=== PATIENT | male | born 1955 | race African-American/Black ===

== ENCOUNTER 2021-05-07 11:35 | Inpatient (IN) | payer MEDICARE, OTHER ==
[~2021-05-07] VITALS: Ht 182.9 cm; Wt 120.2 kg
[2021-05-07 13:58] LABS: Basophils # (auto) 0.1 10 ^3/uL (0-0.2); Eosinophils # (auto) 0.3 10 ^3/uL (0-0.8); Hematocrit 26.7 % (41.0-53.0); Lymphocytes % (auto) 35.5 % (10.0-50.0); Mean Corpuscular Hemoglobin 29.7 pg (28.0-32.0); Mean Corpuscular Hgb Conc. 33.8 g/dL (32.0-36.0); Mean Corpuscular Volume 87.8 fL (80.0-100.0); Monocytes # (auto) 1.4 10 ^3/uL (0-1.3); Monocytes % (auto) 16.8 % (0.0-12.0); Neutrophils # (auto) 3.6 10 ^3/uL (1.6-8.6); Neutrophils % (auto) 42.7 % (37.0-80.0); Nucleated Red Blood Cells % 0.1 %; Red Blood Cells 3.05 10^6/uL (4.5-5.90); Red Cell Distribution Width 15.8 % (11.8-14.3); White Blood Cell 8.5 10^3/uL (4.4-10.8)
[2021-05-07 14:21] LABS: INR 1.18 (0.9-1.15); Partial Thromboplastin Time 35.6 sec (23.0-31.2)
[2021-05-07 14:23] LABS: Alanine Aminotransferase 11 U/L (16-61); Albumin 2.5 g/dL (3.4-5.0); Anion Gap 7 (5-15); Aspartate Aminotransferase 13 U/L (15-37); BUN/Creatinine Ratio 3.6; Blood Urea Nitrogen 24 mg/dL (7-18); Calcium 9.2 mg/dL (8.5-10.1); Carbon Dioxide 34 mmol/L (21-32); Chloride 93 mmol/L (98-107); GFR African American 11 mL/min; GFR Non-African American 9 mL/min; Glucose 114 mg/dL (74-106); Magnesium 1.9 mg/dL (1.6-2.6); Potassium 3.2 mmol/L (3.5-5.1); Sodium 134 mmol/L (136-145)
[2021-05-07 14:28] LABS: Alkaline Phosphatase 80 U/L (45-117); Bilirubin, Total 0.4 mg/dL (0.2-1.0); Total Protein 8.6 g/dL (6.4-8.2)
[2021-05-07] MEDS ORDERED: POTASSIUM CHL 20MEQ/100ML 100 ML IV ONE (15:30)
[2021-05-07] MEDS ORDERED: DEXTROSE (50%) 50ML SYRG IV PRN (17:00)
[2021-05-07] MEDS ORDERED: HYDROcodone-ACET 5/325MG TAB PO PRN (17:00)
[2021-05-07] MEDS ORDERED: NITROGLYCERIN 0.4 MG SL TAB SL PRN (17:00)
[2021-05-07] MEDS: InsuLIN REG 1unit/0.01ml Soln (100units/ml) SC SCH ×2 (17:00→22:41)
[2021-05-07] MEDS ORDERED: VANCOMYCIN PER PHARMACY 0 MG IV SCH (17:00)
[2021-05-07] MEDS ORDERED: ACETAMINOPHEN 500 MG TAB PO PRN (17:00)
[2021-05-07] MEDS ORDERED: MORPHINE SULFATE INJECTION 2 MG/ML SYRG IV PRN ×2 (17:00)
[2021-05-07] MEDS: ACCU-CHEK COMFORT CURVE STRIP VI SCH ×2 (17:35→22:40)
[2021-05-07] MEDS ORDERED: VANCOMYCIN 1GM/250ML 250 ML IV ONE (18:00)
[2021-05-07 19:20] LABS: Folate (Folic Acid) > 24.00 ng/mL (5.38-24)
[2021-05-07 22:15] VITALS: BP 125/72
[2021-05-07] MEDS: metroNIDAZOLE 500MG/100ML 100 ML IV SCH (22:40)
[2021-05-07 23:35] VITALS: BP 125/72
[2021-05-08 05:00] VITALS: BP 116/67
[2021-05-08] MEDS: metroNIDAZOLE 500MG/100ML 100 ML IV SCH (05:50)
[2021-05-08] MEDS: ACCU-CHEK COMFORT CURVE STRIP VI SCH ×4 (06:38→21:48)
[2021-05-08] MEDS: InsuLIN REG 1unit/0.01ml Soln (100units/ml) SC SCH ×4 (06:39→21:48)
[2021-05-08] MEDS ORDERED: SODIUM CHL 0.9% 1000 ML BAG XX ONE (07:00)
[2021-05-08 07:29] LABS: Basophils # (auto) 0.1 10 ^3/uL (0-0.2); Eosinophils # (auto) 0.4 10 ^3/uL (0-0.8); Eosinophils % (auto) 5.7 % (0.0-7.0); Hematocrit 27.4 % (41.0-53.0); Hemoglobin 9.2 g/dL (13.5-17.5); Lymphocytes % (auto) 27.8 % (10.0-50.0); Mean Corpuscular Hemoglobin 29.5 pg (28.0-32.0); Mean Corpuscular Hgb Conc. 33.6 g/dL (32.0-36.0); Mean Corpuscular Volume 87.9 fL (80.0-100.0); Monocytes % (auto) 14.7 % (0.0-12.0); Neutrophils # (auto) 3.6 10 ^3/uL (1.6-8.6); Neutrophils % (auto) 50.8 % (37.0-80.0); Nucleated Red Blood Cells % 0.1 %; Red Blood Cells 3.12 10^6/uL (4.5-5.90); Red Cell Distribution Width 15.6 % (11.8-14.3); White Blood Cell 7.1 10^3/uL (4.4-10.8)
[2021-05-08 07:47] LABS: INR 1.13 (0.9-1.15); Partial Thromboplastin Time 32.3 sec (23.0-31.2)
[2021-05-08 07:52] LABS: Potassium 3.5 mmol/L (3.5-5.1)
[2021-05-08 07:56] LABS: BUN/Creatinine Ratio 3.7
[2021-05-08 08:30] VITALS: BP 106/60
[2021-05-08 09:00] VITALS: BP 106/60
[2021-05-08] MEDS ORDERED: levoFLOXacin 750MG 150 ML IV SCH (10:00)
[2021-05-08 12:30] VITALS: BP 142/76
[2021-05-08 17:00] VITALS: BP 130/67
[2021-05-08] MEDS ORDERED: VANCOMYCIN 1GM/250ML 250 ML IV ONE (18:00)
[2021-05-08] MEDS ORDERED: EPOETIN ALFA-EPBX 4,000 UNIT/ML VIAL SC ONE (21:00)
[2021-05-08 22:00] VITALS: BP 130/72
[2021-05-09 05:00] VITALS: BP 131/70
[2021-05-09 06:56] LABS: Basophils # (auto) 0.1 10 ^3/uL (0-0.2); Eosinophils # (auto) 0.4 10 ^3/uL (0-0.8); Eosinophils % (auto) 5.8 % (0.0-7.0); Hematocrit 28.3 % (41.0-53.0); Hemoglobin 9.5 g/dL (13.5-17.5); Lymphocytes # (auto) 2.4 10 ^3/uL (0.4-5.4); Mean Corpuscular Hemoglobin 29.7 pg (28.0-32.0); Mean Corpuscular Hgb Conc. 33.6 g/dL (32.0-36.0); Mean Corpuscular Volume 88.3 fL (80.0-100.0); Monocytes # (auto) 1.1 10 ^3/uL (0-1.3); Monocytes % (auto) 15.9 % (0.0-12.0); Neutrophils # (auto) 2.9 10 ^3/uL (1.6-8.6); Neutrophils % (auto) 42.3 % (37.0-80.0); Nucleated Red Blood Cells % 0.1 %; Red Cell Distribution Width 15.3 % (11.8-14.3); White Blood Cell 6.9 10^3/uL (4.4-10.8)
[2021-05-09] MEDS: InsuLIN REG 1unit/0.01ml Soln (100units/ml) SC SCH ×4 (06:56→22:04)
[2021-05-09] MEDS: ACCU-CHEK COMFORT CURVE STRIP VI SCH ×4 (06:56→22:02)
[2021-05-09 07:11] LABS: Albumin 2.3 g/dL (3.4-5.0); Calcium 8.9 mg/dL (8.5-10.1); Magnesium 1.9 mg/dL (1.6-2.6); Potassium 3.9 mmol/L (3.5-5.1)
[2021-05-09 07:16] LABS: BUN/Creatinine Ratio 3.5; Bilirubin, Total 0.5 mg/dL (0.2-1.0); Total Protein 8.1 g/dL (6.4-8.2)
[2021-05-09 09:00] VITALS: BP 102/58
[2021-05-09 13:00] VITALS: BP 130/68
[2021-05-09] MEDS ORDERED: CHOLECALCIFEROL (VITD3) 2,000 UNIT CAP/TAB PO ONE (14:15)
[2021-05-09] MEDS ORDERED: MAGNESIUM SULFATE 1GM/100ML 100 ML IV ONE (14:15)
[2021-05-09 17:00] VITALS: BP 100/66
[2021-05-09 22:00] VITALS: BP 137/78
[2021-05-09] MEDS: MUPIROCIN 2% OINT 15gm or 22gm EACHNOSTRI SCH (22:04)
[2021-05-10 05:00] VITALS: BP 129/70
[2021-05-10] MEDS: InsuLIN REG 1unit/0.01ml Soln (100units/ml) SC SCH ×3 (06:25→16:32)
[2021-05-10] MEDS: ACCU-CHEK COMFORT CURVE STRIP VI SCH ×3 (06:25→16:33)
[2021-05-10 06:49] LABS: Basophils # (auto) 0.1 10 ^3/uL (0-0.2); Basophils % (auto) 0.9 % (0.0-2.0); Eosinophils # (auto) 0.5 10 ^3/uL (0-0.8); Hematocrit 26.9 % (41.0-53.0); Hemoglobin 9.1 g/dL (13.5-17.5); Lymphocytes # (auto) 2.9 10 ^3/uL (0.4-5.4); Lymphocytes % (auto) 38.7 % (10.0-50.0); Mean Corpuscular Hemoglobin 29.9 pg (28.0-32.0); Mean Corpuscular Volume 87.9 fL (80.0-100.0); Monocytes # (auto) 1.1 10 ^3/uL (0-1.3); Monocytes % (auto) 14.1 % (0.0-12.0); Neutrophils % (auto) 39.3 % (37.0-80.0); Red Blood Cells 3.05 10^6/uL (4.5-5.90); Red Cell Distribution Width 14.9 % (11.8-14.3); White Blood Cell 7.6 10^3/uL (4.4-10.8)
[2021-05-10] MEDS ORDERED: SODIUM CHL 0.9% 1000 ML BAG XX ONE (07:00)
[2021-05-10 07:04] LABS: Magnesium 2.2 mg/dL (1.6-2.6); Potassium 3.5 mmol/L (3.5-5.1)
[2021-05-10 09:00] VITALS: BP 125/69
[2021-05-10] MEDS ORDERED: CHOLECALCIFEROL (VITD3) 2,000 UNIT CAP/TAB PO SCH (10:00)
[2021-05-10] MEDS: MUPIROCIN 2% OINT 15gm or 22gm EACHNOSTRI SCH (10:05)
[2021-05-10 13:00] VITALS: BP 136/85
[2021-05-10] MEDS ORDERED: GABA100C9 PO (13:22)
[2021-05-10] MEDS ORDERED: ATO40T PO (13:22)
[2021-05-10] MEDS ORDERED: MIDO10TA2 PO (13:22)
[2021-05-10] MEDS ORDERED: OMEP20TA PO (13:22)
[2021-05-10] MEDS ORDERED: APIX5TAB PO (13:22)
[2021-05-10] MEDS ORDERED: LEVO500T31 PO (14:19)
[2021-05-10] MEDS ORDERED: CHOL20007 PO (14:19)
[2021-05-10] MEDS ORDERED: MUPI2CRE17 EX (14:19)
[2021-05-10] MEDS ORDERED: SACC250C PO (14:27)
[2021-05-10] MEDS ORDERED: levoFLOXacin 750MG 150 ML IV ONE (14:30)
[2021-05-10 16:38] VITALS: BP 99/58
[2021-05-10] MEDS ORDERED: EPOETIN ALFA-EPBX 4,000 UNIT/ML VIAL SC ONE (21:00)
== END 2021-05-10 17:40 | disposition home health service (06) | DRG 637 ==
LOC: ER 11:35 → EDBD 11:35 → TELE 16:47 → TELE-EAST 22:15
PROVIDERS: ADMIT Nurse Practitioner Acute Care; ATTEND Internal Medicine
PROC: 5A1D70Z Performance of Urinary Filtration, Intermittent, Less than 6 Hours Per Day (ICD-10-PCS; principal; 2021-05-08)
PROC: 5A1D70Z Performance of Urinary Filtration, Intermittent, Less than 6 Hours Per Day (ICD-10-PCS; 2021-05-10)
DX: E11.621 Type 2 diabetes mellitus with foot ulcer (principal); G93.41 Metabolic encephalopathy; E87.1 Hypo-osmolality and hyponatremia; I12.0 Hypertensive chronic kidney disease with stage 5 chronic kidney disease or end stage renal disease; M86.8X7 Other osteomyelitis, ankle and foot; E11.69 Type 2 diabetes mellitus with other specified complication; N18.6 End stage renal disease; E87.6 Hypokalemia; L89.619 Pressure ulcer of right heel, unspecified stage; I95.9 Hypotension, unspecified; E66.9 Obesity, unspecified; Z20.822 Contact with and (suspected) exposure to COVID-19; B95.61 Methicillin susceptible Staphylococcus aureus infection as the cause of diseases classified elsewhere; D63.8 Anemia in other chronic diseases classified elsewhere; E11.22 Type 2 diabetes mellitus with diabetic chronic kidney disease; E55.9 Vitamin D deficiency, unspecified; E78.5 Hyperlipidemia, unspecified; I44.7 Left bundle-branch block, unspecified; Z99.2 Dependence on renal dialysis; Z86.73 Personal history of transient ischemic attack (TIA), and cerebral infarction without residual deficits; Z68.31 Body mass index [BMI] 31.0-31.9, adult; Z79.4 Long term (current) use of insulin; Z88.0 Allergy status to penicillin
CPT/HCPCS: 36415; 70450; 73700; 73721; 80048; 80053; 80061; 80202; 82306; 82746; 82962; 83036; 83605; 83735; 84132; 84425; 84443; 84484; 85025; 85049; 85610; 85730; 87040; 87077; 87081; 87186; 87205; 87426; 90935; 93005; 96365; 96366; 96367; 99291; G0378; J1642; J1815; J1956; J3480; J3490

== ENCOUNTER 2021-05-13 15:48 | Inpatient (IN) | payer OTHER, MEDICARE ==
[~2021-05-13] VITALS: Ht 188 cm; Wt 99.2 kg
[~2021-05-13 15:48] MED LIST: APIX5TAB PO; ATO40T PO; CHOL20007 PO; GABA100C9 PO; LEVO500T31 PO; MIDO10TA2 PO; MUPI2CRE17 EX; OMEP20TA PO; SACC250C PO
[2021-05-13] MEDS ORDERED: SODIUM CHLORIDE 0.9% 500 ML IV ONE (17:15)
[2021-05-13 17:55] LABS: Basophils # (auto) 0.1 10 ^3/uL (0-0.2); Basophils % (auto) 1.2 % (0.0-2.0); Eosinophils # (auto) 0.4 10 ^3/uL (0-0.8); Eosinophils % (auto) 4.7 % (0.0-7.0); Hemoglobin 8.8 g/dL (13.5-17.5); Lymphocytes # (auto) 3.1 10 ^3/uL (0.4-5.4); Lymphocytes % (auto) 32.3 % (10.0-50.0); Mean Corpuscular Hemoglobin 29.8 pg (28.0-32.0); Mean Corpuscular Hgb Conc. 33.8 g/dL (32.0-36.0); Mean Corpuscular Volume 88.1 fL (80.0-100.0); Monocytes # (auto) 1.3 10 ^3/uL (0-1.3); Monocytes % (auto) 13.3 % (0.0-12.0); Neutrophils # (auto) 4.6 10 ^3/uL (1.6-8.6); Neutrophils % (auto) 48.5 % (37.0-80.0); Nucleated Red Blood Cells % 0.4 %; Platelet Count (auto) 316 10^3/uL (140-450); Red Blood Cells 2.95 10^6/uL (4.5-5.90); Red Cell Distribution Width 15.4 % (11.8-14.3); White Blood Cell 9.5 10^3/uL (4.4-10.8)
[2021-05-13 17:59] LABS: Albumin 2.3 g/dL (3.4-5.0); Anion Gap 5 (5-15); Carbon Dioxide 31 mmol/L (21-32); Chloride 101 mmol/L (98-107); Glucose 53 mg/dL (74-106); Potassium 3.6 mmol/L (3.5-5.1); Sodium 137 mmol/L (136-145)
[2021-05-13 18:03] LABS: Alanine Aminotransferase 11 U/L (16-61); Alkaline Phosphatase 71 U/L (45-117); Aspartate Aminotransferase 11 U/L (15-37); BUN/Creatinine Ratio 2.5; Bilirubin, Total 0.3 mg/dL (0.2-1.0); Blood Urea Nitrogen 13 mg/dL (7-18); GFR African American 14 mL/min; GFR Non-African American 12 mL/min; Total Protein 8.3 g/dL (6.4-8.2)
[2021-05-13] MEDS ORDERED: DEXTROSE (50%) 50ML SYRG IV PRN (20:15)
[2021-05-13] MEDS ORDERED: levoFLOXacin 250 MG TAB PO ONE (20:15)
[2021-05-13] MEDS ORDERED: ONDANSETRON HCL 4 MG/2 ML VIAL IV PRN (20:15)
[2021-05-13] MEDS ORDERED: HYDROcodone-ACET 5/325MG TAB PO PRN (20:15)
[2021-05-13] MEDS ORDERED: MORPHINE SULF INJ 2 MG/ML SYRINGE 1ML IV PRN (20:15)
[2021-05-13] MEDS ORDERED: NITROGLYCERIN 0.4 MG SL TAB SL PRN (20:15)
[2021-05-13] MEDS: InsuLIN REG 1unit/0.01ml Soln (100units/ml) SC SCH (22:00)
[2021-05-13] MEDS: ACCU-CHEK COMFORT CURVE STRIP VI SCH (22:00)
[2021-05-13] MEDS: APIXABAN 5 MG TAB PO SCH (22:55)
[2021-05-13] MEDS: FAMOTIDINE 20 MG TAB PO SCH (22:56)
[2021-05-13] MEDS: ATORVASTATIN 20 MG TAB PO SCH (22:56)
[2021-05-14 05:17] VITALS: BP 123/58
[2021-05-14] MEDS: ACETAMINOPHEN 500 MG TAB PO PRN ×2 (06:19→16:30)
[2021-05-14] MEDS: ACCU-CHEK COMFORT CURVE STRIP VI SCH ×4 (06:19→21:35)
[2021-05-14] MEDS: InsuLIN REG 1unit/0.01ml Soln (100units/ml) SC SCH ×4 (06:19→21:49)
[2021-05-14 08:00] VITALS: BP 133/70
[2021-05-14] MEDS: GABAPENTIN 100 MG CAP PO SCH (10:12)
[2021-05-14] MEDS: MIDODRINE HCL 10 MG TAB PO SCH ×3 (10:12→20:30)
[2021-05-14] MEDS: APIXABAN 5 MG TAB PO SCH ×2 (10:12→21:50)
[2021-05-14 13:34] VITALS: BP 123/68
[2021-05-14] MEDS: levoFLOXacin 500MG 100 ML IV SCH (16:59)
[2021-05-14 17:11] VITALS: BP 156/98
[2021-05-14] MEDS: ATORVASTATIN 20 MG TAB PO SCH (21:50)
[2021-05-14 22:00] VITALS: BP_SYST 117; BP_SYST 123; BP_SYST 133; BP_DIAS 62; BP_DIAS 70; BP_DIAS 75
[2021-05-15] VITALS (8 sets, daily range): BP systolic 117–151; BP diastolic 67–81
[2021-05-15] MEDS: InsuLIN REG 1unit/0.01ml Soln (100units/ml) SC SCH ×4 (07:00→21:48)
[2021-05-15] MEDS: ACCU-CHEK COMFORT CURVE STRIP VI SCH ×4 (07:00→21:43)
[2021-05-15] MEDS ORDERED: SODIUM CHL 0.9% 1000 ML BAG XX ONE (07:00)
[2021-05-15 07:28] LABS: Hematocrit 33.5 % (41.0-53.0); Hemoglobin 11.1 g/dL (13.5-17.5)
[2021-05-15] MEDS: MIDODRINE HCL 10 MG TAB PO SCH ×3 (10:00→20:00)
[2021-05-15] MEDS: FAMOTIDINE 20 MG TAB PO SCH (12:09)
[2021-05-15] MEDS: GABAPENTIN 100 MG CAP PO SCH (12:09)
[2021-05-15] MEDS: APIXABAN 5 MG TAB PO SCH ×2 (12:09→21:42)
[2021-05-15] MEDS ORDERED: EPOETIN ALFA-EPBX 4,000 UNIT/ML VIAL SC ONE (21:00)
[2021-05-15] MEDS: ATORVASTATIN 20 MG TAB PO SCH (21:42)
[2021-05-15] MEDS: MUPIROCIN 2% OINT 15gm or 22gm EACHNOSTRI SCH (21:42)
[2021-05-16 05:00] VITALS: BP 149/87
[2021-05-16] MEDS: ACCU-CHEK COMFORT CURVE STRIP VI SCH ×3 (06:11→17:42)
[2021-05-16] MEDS: InsuLIN REG 1unit/0.01ml Soln (100units/ml) SC SCH ×3 (06:16→17:42)
[2021-05-16 09:09] VITALS: BP 154/79
[2021-05-16] MEDS: MIDODRINE HCL 10 MG TAB PO SCH ×2 (09:19→15:00)
[2021-05-16] MEDS: GABAPENTIN 100 MG CAP PO SCH (09:31)
[2021-05-16] MEDS: APIXABAN 5 MG TAB PO SCH (09:31)
[2021-05-16] MEDS: MUPIROCIN 2% OINT 15gm or 22gm EACHNOSTRI SCH (09:32)
[2021-05-16 13:00] VITALS: BP 140/89
[2021-05-16 16:55] VITALS: BP 130/75
[2021-05-16] MEDS: levoFLOXacin 500MG 100 ML IV SCH (17:41)
[2021-05-17] MEDS ORDERED: SODIUM CHL 0.9% 1000 ML BAG XX ONE (07:00)
== END 2021-05-16 19:54 | disposition home health service (06) | DRG 640 ==
LOC: ER 15:48 → EDBD 15:48 → TELE 20:04 → TELE-WESTW 22:43
PROVIDERS: ADMIT Nurse Practitioner Acute Care; ATTEND Internal Medicine
PROC: 5A1D70Z Performance of Urinary Filtration, Intermittent, Less than 6 Hours Per Day (ICD-10-PCS; principal; 2021-05-15)
DX: E86.1 Hypovolemia (principal); N18.6 End stage renal disease; E44.1 Mild protein-calorie malnutrition; I13.2 Hypertensive heart and chronic kidney disease with heart failure and with stage 5 chronic kidney disease, or end stage renal disease; M86.8X7 Other osteomyelitis, ankle and foot; E11.649 Type 2 diabetes mellitus with hypoglycemia without coma; I95.3 Hypotension of hemodialysis; D63.8 Anemia in other chronic diseases classified elsewhere; E55.9 Vitamin D deficiency, unspecified; I44.7 Left bundle-branch block, unspecified; D63.1 Anemia in chronic kidney disease; E11.22 Type 2 diabetes mellitus with diabetic chronic kidney disease; E11.40 Type 2 diabetes mellitus with diabetic neuropathy, unspecified; E66.9 Obesity, unspecified; E78.5 Hyperlipidemia, unspecified; L08.9 Local infection of the skin and subcutaneous tissue, unspecified; I50.9 Heart failure, unspecified; Z20.822 Contact with and (suspected) exposure to COVID-19; E11.621 Type 2 diabetes mellitus with foot ulcer; Z79.01 Long term (current) use of anticoagulants; Z79.4 Long term (current) use of insulin; Z86.73 Personal history of transient ischemic attack (TIA), and cerebral infarction without residual deficits; Z99.2 Dependence on renal dialysis; Z88.0 Allergy status to penicillin; Z68.21 Body mass index [BMI] 21.0-21.9, adult; Z68.28 Body mass index [BMI] 28.0-28.9, adult
CPT/HCPCS: 36415; 71045; 80053; 82962; 83735; 84484; 85014; 85018; 85025; 85049; 87081; 87426; 93005; 93306; 93886; 96361; 96365; 97110; 97116; 97530; G0378; J1642; J1815; J1956